=== PATIENT | male | born 1970 | race Caucasian/White ===

== ENCOUNTER 2016-04-27 11:18 | Inpatient (IN) | payer MEDICARE ==
--- NOTE | ~2016-04-27 | DS ---
Discharge Summary [facility] [address] [place]. [address] NAME: SIERRA JOHNSON JR : 66 STATUS : DIS IN PAT#: [id number] AGE: 45 ADM/REG DATE : 04/27/16 MR#: [id number] REPORT SERV DATE: 04/29/16 DICTATED BY: ZACKARY CEE DATE: 04/29/16 REPORT STATUS : Draft TRANSCRIBED BY: MODL DATE: 04/29/16 ADMISSION DATE: 04/27/2016 DISCHARGE DATE: 04/29/2016 DISCHARGE DIAGNOSES: 1. Community-acquired pneumonia. 2. History of kidney transplant with chronic immunosuppression for antirejection. 3. Chronic methadone use. 4. Smoking. 5. Early sepsis, resolved. CONSULTS: None. PROCEDURES: None. HOSPITAL COURSE: This is a 45-year-old gentleman with history of kidney transplant who has been on immunosuppressants who was admitted to the hospital with community-acquired pneumonia with early sepsis. For details, please refer to H and P by Dr. Bello. In summary, the patient was admitted and was started on IV antibiotic therapy with IV Rocephin and Zithromax. By the second day of the hospital stay, the patient was not requiring any oxygen and he was clinically improving. By the third day of the hospital stay, the patient was able to ambulate and walk out to the hospital to smoke cigarettes without any difficulty. The patient's labs also showed progressive improvement overall. The patient was considered stable for discharge home to continue the course of the antibiotic therapy by mouth. The patient was also very much eager to be released from the hospital and I felt that the patient was medically ready also. Due to patient's chronic use of methadone, Maikel was not a very good candidate for outpatient p.o. antibiotic therapy as it can cause life- threatening QT prolongation that leads to torsades. Also, based on the patient's preliminary sputum cultures that showed Staph species, it was felt appropriate for patient to be discharged home with p.o. doxycycline. The patient is being discharged home to finish a total of 10 day course of antibiotic therapy. DISCHARGE MEDICATIONS: Other than the doxycycline no other medication changes. DISPOSITION: Home. FOLLOWUP: Please follow up with PCP in the next one to two weeks. TIME: Total of 25 minutes spent in coordinating this patient's discharge today. ESTEBAN/MODL Zackary Cee MD Discharge Summary [place] [address] [place] [address] NAME: SIERRA JOHNSON JR : 66 STATUS : DIS IN PAT#: [id number] AGE: 45 ADM/REG DATE : 04/27/16 MR#: [id number] REPORT SERV DATE: 04/29/16 DICTATED BY: ZACKARY CEE DATE: 04/29/16 REPORT STATUS : Draft TRANSCRIBED BY: MODL DATE: 04/29/16 / [id number] CC: MD Magdaleno Vinson MD
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
[~2016-04-27 11:18] MED LIST: ACET500CAP PO; AMB5 PO; ASABAYER PO; AUG500 PO; CELLCEPT2 PO; COMBIVENT RESPIM4 GM INH; DEPAKOT500 PO; DISKETS40 MG PO; DOLOPHINE10 MG PO; KLONO1 PO; LEVAQUIN750 MG PO; LOP100 PO; LOP50 PO; LORTAB 5 PO; METHADONE 120 MG PO; METHADONE PO; METHATAB40; METHATAB40 PO; MUCINEX600 MG PO; MYFORTIC180 MG PO; MYFORTIC360 MG PO; NEUR600 PO; NORV10 PO; PHOSLO PO; PR25 PO; PROAIR HFA INH; PROGRAF1; PROGRAF1 PO; PROVENTSOL INH; RANITIDINE300 MG PO; SPIRIVA INH; SYMBICORT 160/41 INH INH; TOPXL50 PO; V5 PO; ZANTAC300 MG PO
[2016-04-27 12:16] LABS: BASOPHILS 0.2 %; BASOPHILS ABSOLUTE 0.02 10/3/uL (0.0-0.16); EOSINOPHILS 0.8 %; HEMATOCRIT 39.5 % (40.0-51.0); HEMOGLOBIN 12.8 g/dL (13.6-17.8); IMMATURE GRANULOCYTES 0.2 %; IMMATURE GRANULOCYTES ABSOLUTE 0.03 10/3/uL (0.0-0.11); LYMPHOCYTES 6.9 %; MEAN CORPUSCULAR HEMOGLOB 28.3 pg (26.0-34.0); MEAN CORPUSCULAR VOLUME 87.4 fL (80-100); MEAN PLATELET VOLUME 9.6 fL (9.2-13.0); MONOCYTES 6.4 %; MONOCYTES ABSOLUTE 0.83 10/3/uL (0.21-1.20); NEUTROPHILS 85.5 %; NEUTROPHILS ABSOLUTE 11.17 10/3/uL (2.02-8.40); PLATELET COUNT 343 10/3/uL (150-400); RBC DISTRIBUTION WIDTH 13.9 % (12.0-16.0); RED CELL COUNT 4.52 10/6/uL (4.7-6.1)
[2016-04-27 12:16] LABS: WBC (NOT ORDERED) (RFLEX) 0 (0-5)
[2016-04-27 12:18] LABS: ER CBC TAT 0 Hrs 09 Mins; MANUAL DIFF NO %; MEAN CORPUS HGB CONC 32.4 g/dL (32.0-36.0); WHITE BLOOD CELLS 13.1 10/3/uL (4.5-10.5)
[2016-04-27] MEDS ORDERED: SPIRIVA INH (12:27)
[2016-04-27] MEDS ORDERED: LOP50 PO (12:28)
[2016-04-27] MEDS ORDERED: NEUR600 PO (12:28)
[2016-04-27] MEDS ORDERED: PROAIR HFA INH (12:28)
[2016-04-27 12:29] LABS: A/G RATIO 0.7 (0.7-1.9); ALBUMIN 3.4 G/DL (3.5-5.0); CALCIUM, SERUM 8.5 MG/DL (8.5-10.4); CHLORIDE, SERUM 104 MMOL/L (96-112); CO2 (CARBON DIOXIDE) 27 MMOL/L (24-34); CREATININE 1.52 MG/DL (0.70-1.30); GFR AFRICAN AMERICAN 62 ML/MIN (>=60); GFR NON AFRICAN AMERICAN 54 ML/MIN (>=60); GLOBULIN 4.8 G/DL (2.5-4.1); GLUCOSE, SERUM 127 MG/DL (60-99); POTASSIUM, SERUM 4.5 MMOL/L (3.5-5.3); SGOT(AST) 9 U/L (5-40); SGPT(ALT) 16 U/L (5-65); SODIUM, SERUM 140 MMOL/L (135-148); TOTAL BILIRUBIN 0.2 MG/DL (0-1.2); TOTAL PROTEIN 8.2 G/DL (6.0-8.5)
[2016-04-27] MEDS ORDERED: MYFORTIC360 MG PO (12:29)
[2016-04-27] MEDS ORDERED: KLONO1 PO (12:29)
[2016-04-27] MEDS ORDERED: PROGRAF1 PO (12:29)
[2016-04-27 12:30] LABS: ALKALINE PHOSPHATASE 138 U/L (45-117); BUN (BLOOD UREA NITROGEN) 14 MG/DL (6-23)
[2016-04-27 12:30] LABS: ASCORBIC ACID (UR NOT ORDER) NEG (NEG); BILIRUBIN, URINE NEGATIVE (NEG); ER URINALYSIS TAT 0 Hrs 14 Mins; KETONE, URINE NEGATIVE (NEG); LEUKOCYTE ESTERASE(NOT OR NEG (NEG); NITRITE (URINE) NEG (NEG)
[2016-04-27] MEDS ORDERED: ZANTAC300 MG PO (12:30)
[2016-04-27] MEDS ORDERED: SYMBICORT 160/41 INH INH (12:30)
[2016-04-27] MEDS ORDERED: MULTIVITAMI1 PO (12:30)
[2016-04-27 12:49] LABS: INFLUENZA A SCREEN NEGATIVE (NEGATIVE); INFLUENZA B SCREEN NEGATIVE (NEGATIVE)
[2016-04-28 07:31] LABS: BASOPHILS 0.2 %; BASOPHILS ABSOLUTE 0.02 10/3/uL (0.0-0.16); EOSINOPHILS 1.5 %; EOSINOPHILS ABSOLUTE 0.17 10/3/uL (0.0-0.53); HEMATOCRIT 36.1 % (40.0-51.0); HEMOGLOBIN 11.2 g/dL (13.6-17.8); IMMATURE GRANULOCYTES 0.3 %; IMMATURE GRANULOCYTES ABSOLUTE 0.03 10/3/uL (0.0-0.11); LYMPHOCYTES 14.1 %; MEAN PLATELET VOLUME 9.9 fL (9.2-13.0); MONOCYTES 7.1 %; NEUTROPHILS 76.8 %; NEUTROPHILS ABSOLUTE 8.72 10/3/uL (2.02-8.40); PLATELET COUNT 318 10/3/uL (150-400); RBC DISTRIBUTION WIDTH 14.1 % (12.0-16.0); WHITE BLOOD CELLS 11.3 10/3/uL (4.5-10.5)
[2016-04-28 07:33] LABS: MANUAL DIFF NO %; MEAN CORPUSCULAR VOLUME 90.3 fL (80-100)
[2016-04-28 07:43] LABS: BUN (BLOOD UREA NITROGEN) 12 MG/DL (6-23); CALCIUM, SERUM 8.4 MG/DL (8.5-10.4); CHLORIDE, SERUM 105 MMOL/L (96-112); CO2 (CARBON DIOXIDE) 27 MMOL/L (24-34); CREATININE 1.19 MG/DL (0.70-1.30); GFR AFRICAN AMERICAN 84 ML/MIN (>=60); GFR NON AFRICAN AMERICAN 72 ML/MIN (>=60); GLUCOSE, SERUM 102 MG/DL (60-99); POTASSIUM, SERUM 4.2 MMOL/L (3.5-5.3); SODIUM, SERUM 144 MMOL/L (135-148)
[2016-04-29 07:17] LABS: BASOPHILS 0.1 %; BASOPHILS ABSOLUTE 0.01 10/3/uL (0.0-0.16); EOSINOPHILS 1.7 %; EOSINOPHILS ABSOLUTE 0.17 10/3/uL (0.0-0.53); HEMATOCRIT 34.8 % (40.0-51.0); HEMOGLOBIN 10.9 g/dL (13.6-17.8); IMMATURE GRANULOCYTES 0.3 %; IMMATURE GRANULOCYTES ABSOLUTE 0.03 10/3/uL (0.0-0.11); LYMPHOCYTES 13.3 %; LYMPHOCYTES ABSOLUTE 1.33 10/3/uL (0.67-4.30); MEAN CORPUS HGB CONC 31.3 g/dL (32.0-36.0); MEAN CORPUSCULAR HEMOGLOB 27.7 pg (26.0-34.0); MEAN CORPUSCULAR VOLUME 88.5 fL (80-100); MEAN PLATELET VOLUME 9.7 fL (9.2-13.0); MONOCYTES 7.9 %; MONOCYTES ABSOLUTE 0.79 10/3/uL (0.21-1.20); NEUTROPHILS 76.7 %; NEUTROPHILS ABSOLUTE 7.66 10/3/uL (2.02-8.40); PLATELET COUNT 319 10/3/uL (150-400); RBC DISTRIBUTION WIDTH 13.6 % (12.0-16.0); RED CELL COUNT 3.93 10/6/uL (4.7-6.1)
[2016-04-29 07:19] LABS: MANUAL DIFF NO %
[2016-04-29 07:29] LABS: BUN (BLOOD UREA NITROGEN) 14 MG/DL (6-23); CALCIUM, SERUM 8.7 MG/DL (8.5-10.4); CHLORIDE, SERUM 103 MMOL/L (96-112); CO2 (CARBON DIOXIDE) 27 MMOL/L (24-34); CREATININE 1.35 MG/DL (0.70-1.30); GFR AFRICAN AMERICAN 72 ML/MIN (>=60); GFR NON AFRICAN AMERICAN 62 ML/MIN (>=60); GLUCOSE, SERUM 110 MG/DL (60-99); POTASSIUM, SERUM 4.3 MMOL/L (3.5-5.3); SODIUM, SERUM 141 MMOL/L (135-148)
[2016-04-29 08:06] LABS: PROCALCITONIN 1.43 ng/mL (<0.5)
[2016-04-29] MEDS ORDERED: MONODOX100 MG PO (11:14)
== END 2016-04-29 12:14 | disposition home or self-care (01) | DRG 871 ==
LOC: ER 11:18 → 4SO 16:05
PROVIDERS: Emergency Medicine; Internal Medicine
DX: A41.9 Sepsis, unspecified organism (principal); J18.9 Pneumonia, unspecified organism; Z94.0 Kidney transplant status; J44.0 Chronic obstructive pulmonary disease with (acute) lower respiratory infection; Z79.899 Other long term (current) drug therapy; F11.99 Opioid use, unspecified with unspecified opioid-induced disorder; G89.4 Chronic pain syndrome; Z88.5 Allergy status to narcotic agent; Z91.040 Latex allergy status; Z79.51 Long term (current) use of inhaled steroids; F17.210 Nicotine dependence, cigarettes, uncomplicated; B95.8 Unspecified staphylococcus as the cause of diseases classified elsewhere
CPT/HCPCS: 71020; 80048; 80053; 80197; 81001; 83605; 84145; 85025; 87040; 87070; 87077; 87186; 87205; 87804; 93005; 94640; 96365; 96375; 99285; A9270-GY; J0456; J7507